=== PATIENT | female | born 1960 | race Two or more races ===

== ENCOUNTER 2017-12-09 10:33 | Emergency (ER) | payer OTHER ==
[~2017-12-09] VITALS: Ht 165.1 cm; Wt 102.1 kg
[~2017-12-09 10:33] MED LIST: BYDUREON2 MG; GLIMEPIRIDE1 MG; JANUMET 50-501 UDTAB PO; MICARDIS80 MG PO; SIMVASTATIN20 MG PO
[2017-12-09] MEDS ORDERED: PROMETHAZINE W118 ML PO (13:37)
[2017-12-09] MEDS ORDERED: TESSALON PERLE100 M1 PO (13:37)
[2017-12-09] MEDS ORDERED: ZITHROMAX500 MG PO (13:37)
== END 2017-12-09 16:32 | disposition home or self-care (01) ==
LOC: ER 10:33
DX: B34.9 Viral infection, unspecified (principal)

== ENCOUNTER 2024-03-08 21:32 | Emergency (ER) | payer OTHER ==
[~2024-03-08] VITALS: Ht 175.3 cm; Wt 108.9 kg
[~2024-03-08 21:32] MED LIST changes: +PROMETHAZINE W118 ML PO; +TESSALON PERLE100 M1 PO; +ZITHROMAX500 MG PO
[2024-03-08] MEDS ORDERED: DIPHENHYDRAMINE HCL 50 MG/ML VIAL 1ML IV ONE (21:45)
[2024-03-08] MEDS ORDERED: METHYLPREDNISOLONE SOD SUCC 125 MG VIAL IV ONE (21:45)
[2024-03-08 21:46] VITALS: BP 158/84; O2SAT 96
[2024-03-08] MEDS ORDERED: FAMOTIDINE/PF 20 MG in 0.9 % SODIUM CHLORIDE 8 ML IV PUSH STA (21:46)
[2024-03-08 21:56] LABS: HEMATOCRIT 41.8 % (36.0-45.00); HEMOGLOBIN 14.2 g/dL (12.0-15.00); MEAN CELL VOLUME 84.8 fL (80.00-100.00); MEAN CORPUSCULAR HEMOGLOBIN 28.7 pg (27.00-32.0); MEAN CORPUSCULAR HGB CONC 33.9 g/dl (32.0-36.0); PLATELET COUNT 267 K/uL (150-450); RED BLOOD COUNT 4.93 M/uL (4.00-6.00); RED CELL DISTRIBUTION WIDTH 13.5 % (11.5-14.5)
[2024-03-08] MEDS ORDERED: EPINEPHRINE HCL/PF 1 MG/ML AMPUL SUBCUTANEO ONE (22:00)
[2024-03-08] MEDS ORDERED: BENADRYL ALLERG50 MG PO (22:31)
== END 2024-03-08 22:37 | disposition home or self-care (01) ==
LOC: ER 21:34
PROVIDERS: General Practice
DX: R21 Rash and other nonspecific skin eruption (principal); T78.40XA Allergy, unspecified, initial encounter; Z88.6 Allergy status to analgesic agent; Z91.041 Radiographic dye allergy status